=== PATIENT | female | born 1955 ===

== ENCOUNTER 2022-09-14 06:14 | Day surgery (SDC) | payer OTHER ==
[~2022-09-14] VITALS: Ht 160 cm; Wt 60.8 kg
[2022-09-14] MEDS ORDERED: MIDAZOLAM 2 MG/2 ML VIAL ONE (07:20)
[2022-09-14] MEDS ORDERED: fentaNYL citrate 0.05 MG/ML VIAL ONE (07:20)
[2022-09-14] MEDS ORDERED: LIDOCAINE 2% 100 MG/5 ML UJET TP ONE (07:20)
[2022-09-14] MEDS ORDERED: MIDAZOLAM 2 MG/2 ML VIAL IVP ONE (08:50)
[2022-09-14] MEDS ORDERED: fentaNYL citrate 0.05 MG/ML VIAL IVP ONE (08:50)
== END 2022-09-14 09:45 | disposition home or self-care (01) ==
LOC: MDS 06:14 → MMU 06:19 → MDS 09:45
PROVIDERS: ATTEND Internal Medicine Gastroenterology
DX: Z12.11 Encounter for screening for malignant neoplasm of colon (principal); K29.70 Gastritis, unspecified, without bleeding; K59.00 Constipation, unspecified; E11.9 Type 2 diabetes mellitus without complications; K44.9 Diaphragmatic hernia without obstruction or gangrene; E03.9 Hypothyroidism, unspecified; Z79.82 Long term (current) use of aspirin; Z79.4 Long term (current) use of insulin; Z79.899 Other long term (current) drug therapy; Z20.822 Contact with and (suspected) exposure to COVID-19
CPT/HCPCS: 36415; 43239; 45378; 86677; 87426; J2250; J3010